=== PATIENT | female | born 1990 | race Caucasian/White ===

== ENCOUNTER 2025-07-06 11:55 | Emergency (ER) | payer BC, SELFPAY ==
[2025-07-06 12:20] VITALS: BP 124/70
[2025-07-06 12:42] LABS: Hematocrit 38.1 % (37.0-47.0); Hemoglobin 13.3 g/dL (12.0-16.0); Mean Corp Hgb Conc. 34.9 g/dL (33.0-37.0); Mean Corpuscular Volume 88.6 fL (81.0-99.0); Nucleated Red Blood Cells % 0 %; Platelet Count 235 10^3/uL (130-400); Red Cell Dist. Width 11.9 % (11.5-14.5)
[2025-07-06 13:07] LABS: ALT (SGPT) 15 U/L (0-35); AST (SGOT) 21 U/L (14-36); Albumin 4.6 g/dl (3.5-5.0); Alkaline Phosphatase 42 U/L (38-126); Blood Urea Nitrogen 12 mg/dl (7-17); Calcium 9.9 mg/dl (8.4-10.2); Carbon Dioxide 23 mmol/L (22-30); Chloride 104 mmol/L (98-107); Glucose 91 mg/dl (70-99); Potassium 4.0 mmol/L (3.5-5.1); Sodium 136 mmol/L (135-145); Total Protein 7.5 g/dl (6.3-8.2); eGFR > 60.00
[2025-07-06 13:56] LABS: Beta HCG Quantitative 80717.00 mIU/ml
[2025-07-06 15:15] VITALS: BP 125/61
--- NOTE | 2025-07-06 16:56 | ED.GENMED ---
History of Present Illness
General
Chief Complaint: Vaginal Bleeding
Source: patient
Exam Limitations: none
Time Seen by Provider: 07/06/25 16:30
Nursing documentation reviewed up to this point in time: agreed with
History of Present Illness
History of Present Illness:
Patient is a 34-year-old at approximately 11 weeks gestation who presents to the emergency department with concerns of vaginal bleeding. Patient states that she was cleaning the dishes around 8 AM this morning when she felt a gush of blood.
That she went to the bathroom�she reports having an episode of bright red vaginal bleeding however denies passing any clots. She states she did have some mild abdominal cramping just prior to bleeding.
Patient reports no additional episodes of bleeding since the episode that occurred around 10 AM. She has very mild lower abdominal cramping. She denies any lightheadedness, dizziness, shortness of breath. No loss of fluids. No fever, chills, or
dysuria.
Follows with [facility] HOUSE VISITOR�and did have an ultrasound documented intrauterine noted last when she was dated around 10 weeks. Her LMP was approximately April 21.
Patient's blood type is O+.
Past History
Past History
ED Past Medical History: Asthma (intermittent, hasn't needed inhalers lately)
ED Past Surgical History: None
Social History
Tobacco: Smoker
Personal: Single
Living: alone
Employment: Employed
Review of Systems
Review of Systems
Allergies reviewed?: Yes
All Other Systems: ROS reviewed and negative except as documented in HPI and ROS
Phy Exam
Physical Exam
Physical Exam:
Vitals: Patient's vital signs are stable. Afebrile
General: Patient is well appearing, no acute distress
Skin: Warm and dry, no rashes or lesions
Head: Normocephalic, atraumatic
Eyes: Sclera nonicteric. EOMs intact. No nystagmus.
Throat: Protecting airway
Neck: Normal ROM.
Cardiac: Regular rate and rhythm, no murmurs.
Pulm: Normal respiratory effort, no wheezes, rales, rhonchi heard on exam
Abdomen: Nondistended. Abdomen soft. No areas of focal tenderness.
Extremities: No evidence of cyanosis or edema of bilateral lower extremities
Neuro: AAOx3. Grossly intact.
Psychiatric: Normal affect.
Course
Orders/Labs/Results
Orders:
Orders
07/06/25 12:28
Complete Blood Count/With Diff Urgent
Comprehensive Metabolic Panel Urgent
HCG, Beta Quantitative [Beta HCG Quantitative] Urgent
Is this a screen?: No
07/06/25 13:04
US 1st Trimester Urgent
Reason For Exam: bleeding
Abnormal Lab Results
07/06/25
12:28
WBC 12.1 H 10^3/uL
(4.8-10.8)
Absolute Neuts (auto) 8.5 H 10^3/uL
(1.4-6.5)
Absolute Monos (auto) 0.8 H 10^3/uL
(0.1-0.6)
Creatinine 0.5 L mg/dL
(0.6-1.0)
07/06/25 12:28
07/06/25 12:28
Vital Signs
Initial and Last Documented VS:
Initial Vital Signs
Temp Pulse Resp BP Pulse Ox
99.0 F 78 20 124/70 100
07/06/25 12:20 07/06/25 12:20 07/06/25 12:20 07/06/25 12:20 07/06/25 12:20
Last Documented Vital Signs
Temp Pulse Resp BP Pulse Ox
99.0 F 71 20 125/61 100
07/06/25 12:20 07/06/25 15:15 07/06/25 12:20 07/06/25 15:15 07/06/25 16:58
MDM/Problems Addressed
Differential Diagnosis Includes:
Not limited to: Threatened , spontaneous , missed , subchorionic hematoma, ectopic , etc.
MDM/Problems Addressed:
Patient is a 34-year-old at approximately 11 weeks gestation presenting with concerns of vaginal bleeding and mild abdominal cramping. No fevers, lightheadedness, shortness of breath. Patient hemodynamically stable on arrival. On
exam�patient well-appearing, no apparent distress. Abdomen soft without any areas of focal tenderness. Cardio/pulmonary assessment unremarkable. Prior to my evaluation basic labs were obtained revealing mild leukocytosis of 12.1. Hemoglobin
stable at 13.3. Chemistry unremarkable. hCG 29519. Ultrasound reveals a single IUP estimated of 11 weeks, 2 days with heart rate of 169. Probable subchorionic hematoma noted.
Patient has had no additional episodes of bleeding since earlier this morning. She remains hemodynamically stable. Will bleeding possibly secondary to hematoma�unable to exclude threatened miscarriage. Discussed at length with patient. She
follows with [facility]'s HOUSE VISITOR. Patient has documented O+ blood type in chart from prior . RhoGAM not indicated. Patient is stable for discharge with outpatient HOUSE VISITOR follow-up and strict return precautions. Patient comfortable with
plan.
Chronic conditions affecting care:
N/A
Acute Exacerbation and/or Progression of Chronic Illness:
N/A
*Radiology
Radiology exam reviewed: radiology read reviewed
*Pulse Oximetry
SaO2: 100
Oxygen Mode of Delivery: Room air
Patient hypoxic: no
*EKG
Interpreted by ED Provider?: NA
*Rn Bsn Interpretation
Rate: Rn Bsn- N/A
*Critical Care Note
Total Time (30-74mins, 75-104mins- exclusive of procedures): Not Applicable
ED Attending Note
-
Portions of this chart may have been created with voice recognition software.� Occasional wrong word or��sound alike� substitutions may have occurred due to the inherent limitations of voice recognition software.
Discharge Plan
Departure
Patient Disposition: Home (Routine Discharge)
Date of Disposition: 07/06/25
Time of Disposition: 16:58
Patient with high blood pressure during this ER visit?: No
Discharge Problem:
Threatened miscarriage in early , Subchorionic hematoma in first trimester
Instructions: Threatened Miscarriage (DC), Subchorionic Bleeding
Prescriptions:
No Action
Vitamin
1 tab PO DAILY
ibuprofen 600 mg Tablet
600 mg PO Q6HPRN PRN (Reason: cramps) Qty: 0 0RF
acetaminophen 325 mg Tablet
650 mg PO Q4HPRN PRN (Reason: mild pain) Qty: 0 0RF
Activity Restrictions/Additional Instructions:
RETURN TO THE EMERGENCY DEPARTMENT WITH ANY PERSISTENT/HEAVY VAGINAL BLEEDING, ABDOMINAL PAIN, LIGHTHEADEDNESS/DIZZINESS, SHORTNESS OF BREATH, EPISODES OF FAINTING, WITH CURRENT SYMPTOMS, OR ANY OTHER CONCERNS
- As discussed - your ultrasound did show an intrauterine gestation at approximately 11 weeks, 2 days. Heart rate of 169 BPM. There was a subchorionic hematoma noted which may be the cause of your bleeding however we are unable to exclude a
threatened miscarriage.
- Please continue to stay well-hydrated. I would advise pelvic rest and nipping and exertional activity until cleared by HOUSE VISITOR.
- Please call your HOUSE VISITOR tomorrow for further evaluation as you will require repeat ultrasounds to continue to monitor .
Monitor your symptoms closely and return to the emergency department with any acute worsening/ new symptoms or any other concerns
Interventions
Interventions:
*Risk Screen - Suicide Last Done: 07/06/25 12:20
*Nursing Disposition Last Done: 07/06/25 18:02
Discharge Date and Time
Discharge Date/Time: 07/06/25 18:02
Print Language: DANISH
== END 2025-07-06 18:02 | disposition home or self-care (01) ==
LOC: EMR 11:55
PROVIDERS: Emergency Medicine; EMERGENCY PHYSICIAN Student in an Organized Health Care Education/Training Program; FAMILY PHYSICIAN Family Medicine
DX: O20.0 Threatened abortion (principal); O20.8 Other hemorrhage in early pregnancy; O99.511 Diseases of the respiratory system complicating pregnancy, first trimester; J45.20 Mild intermittent asthma, uncomplicated; O99.331 Smoking (tobacco) complicating pregnancy, first trimester; F17.200 Nicotine dependence, unspecified, uncomplicated; Z3A.11 11 weeks gestation of pregnancy
CPT/HCPCS: 99284; 76801; 80053; 84702; 85025

== ENCOUNTER → 2025-08-13 13:26 | Outpatient (REF) | payer BC, SELFPAY | LOC: PNTC 13:26 | PROVIDERS: ATTENDING PHYSICIAN Obstetrics & Gynecology | DX: O46.90 Antepartum hemorrhage, unspecified, unspecified trimester (principal) | CPT/HCPCS: 76805 ==

== ENCOUNTER → 2025-09-10 09:51 | Outpatient (REF) | payer BC, SELFPAY | LOC: PNTC 09:51 | PROVIDERS: ATTENDING PHYSICIAN Obstetrics & Gynecology | DX: O41.8X20 Other specified disorders of amniotic fluid and membranes, second trimester, not applicable or unspecified (principal); O09.92 Supervision of high risk pregnancy, unspecified, second trimester; Z36.3 Encounter for antenatal screening for malformations; Z36.86 Encounter for antenatal screening for cervical length; O34.219 Maternal care for unspecified type scar from previous cesarean delivery; O20.9 Hemorrhage in early pregnancy, unspecified | CPT/HCPCS: 76811; 76817 ==

== ENCOUNTER → 2025-10-12 09:06 | Outpatient (REF) | payer BC, SELFPAY | LOC: PNTC 09:06 | PROVIDERS: ATTENDING PHYSICIAN Obstetrics & Gynecology | DX: O46.92 Antepartum hemorrhage, unspecified, second trimester (principal); Z36.2 Encounter for other antenatal screening follow-up | CPT/HCPCS: 76816 ==